=== PATIENT | female | born 1970 | race Asian ===

== ENCOUNTER 2019-03-22 16:46 | Emergency (ER) | payer MEDICAID ==
[~2019-03-22] VITALS: Ht 157.5 cm; Wt 51.6 kg
[2019-03-22] MEDS ORDERED: MECL-76 PO (17:18)
[2019-03-22] MEDS ORDERED: ALBU10PO INH (17:18)
[2019-03-22] MEDS ORDERED: PRED20TA PO (17:18)
[2019-03-22] MEDS ORDERED: MELO15TA24 PO (17:18)
[2019-03-22] MEDS ORDERED: HYDR-3240 PO (17:18)
[2019-03-22] MEDS ORDERED: UMEC62.5 INH (17:18)
--- NOTE | 2019-03-22 17:23 | NUR ---
PT AMBULATORY TO ROOM. STATES SHE HAS HAD RIGHT BREAST/RIB TENDERNESS FOR 2 WEEKS. STATES SHE WAS DISCHARGED FROM A HOSPITAL IN [place] THIS WEEK FOR COPD EXACERBATION AND THIS PAIN SHE IS DESCRIBING NOW. STATES SHE IS DIAGNOSED WITH A RIGHT LUNG MASS AND A MASS IN HER BREAST THAT SHE NEEDS TO FOLLOW UP FOR BUT IS UNABLE TO DO SO AT THIS TIME SHE IS HOMELESS. NADN. VSS. CALL LIGHT IN REACH. PT RESTING ON GURNEY. PT AMBULATED TO BATHROOM FOR UA SAMPLE.
[2019-03-22] MEDS ORDERED: HYDROcodone/APAP 5/325 TABLET PO ONE (18:00)
[2019-03-22] MEDS ORDERED: HYDROcodone/APAP 5/325 TABLET ONE ×2 (18:11→18:15)
[2019-03-22 18:16] VITALS: BP 106/75
--- NOTE | 2019-03-22 18:16 | NUR ---
PT MEDICATED FOR 7-8/10 PAIN ORDERED. SW AT BEDSIDE TO OUMAR PT.
--- NOTE | 2019-03-22 18:58 | NUR ---
Christa warren in ED - 03/22/19 at 1858 by CHARIS BS REPORT OF PT FROM EBONIE COLEEN AND ASSUMING CARE OF PT AT THIS TIME.
--- NOTE | 2019-03-22 18:58 | NUR ---
BS REPORT OF PT FROM EBONIE HORNE AND ASSUMING CARE OF PT AT THIS TIME.
== END 2019-03-22 19:02 | disposition home or self-care (01) ==
LOC: ED 17:47
DX: N63.0 Unspecified lump in unspecified breast (principal); J44.9 Chronic obstructive pulmonary disease, unspecified
CPT/HCPCS: 99283

== ENCOUNTER 2019-03-23 15:38 | Observation (INO) | payer MEDICAID ==
[~2019-03-23] VITALS: Ht 157.5 cm; Wt 56.5 kg
[~2019-03-23 15:38] MED LIST: ALBU10PO INH; HYDR-3240 PO; MECL-76 PO; MELO15TA24 PO; PRED20TA PO; UMEC62.5 INH
[2019-03-23 16:03] LABS: MEAN CORPUSCULAR HEMOGLOBIN 31.1 pg (27.0-34.8); MEAN CORPUSCULAR HGB CONC 32.8 g/dL (32.4-35.8); MEAN CORPUSCULAR VOLUME 94.8 fL (80-100); MEAN PLATELET VOLUME 8.6 fL (7.4-10.4); PLATELET COUNT 270 x10^3/uL (130-400); RED BLOOD COUNT 5.24 x10^6/uL (3.82-5.3); RED CELL DISTRIBUTION WIDTH 14.3 % (9.6-15.2)
[2019-03-23 16:15] LABS: ANION GAP 5 mmol/L (5-15); CALCIUM 8.4 mg/dL (8.5-10.1); CHLORIDE 108 mmol/L (98-107); CREATININE 0.75 mg/dL (0.55-1.02)
[2019-03-23 16:16] LABS: ALBUMIN 3.4 g/dL (3.4-5.0)
[2019-03-23 16:18] LABS: ALANINE AMINOTRANSFERASE 51 U/L (12-78); ALKALINE PHOSPHATASE 83 U/L (45-117); BILIRUBIN,TOTAL 0.3 mg/dL (0.2-1.0); TOTAL PROTEIN 7.1 g/dL (6.4-8.2)
[2019-03-23 16:28] LABS: BASOPHILS # (AUTO) 0.06 x10^3/uL (0-0.1); BASOPHILS % (AUTO) 0 % (0-1); EOSINOPHILS % (AUTO) 0 % (1-7); LYMPHOCYTES # (AUTO) 0.51 x10^3/uL (1-3.4); LYMPHOCYTES % (AUTO) 3 % (22-44); MD SCAN; MONOCYTES # (AUTO) 0.12 x10^3/uL (0.2-0.8); MONOCYTES % (AUTO) 1 % (2-9); NEUTROPHILS # (AUTO) 17.92 x10^3/uL (1.8-6.8); NEUTROPHILS % (AUTO) 96 % (42-75)
--- NOTE | 2019-03-23 16:45 | NUR ---
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
--- NOTE | 2019-03-23 17:00 | NUR ---
pt to ed for n/v since this morning. pt states has vomited 2 times today. per pt and , pt might have eaten some bad chicken strips yeaterday. pt connected to monitors. vss. awaiting edmd assessment.
--- NOTE | 2019-03-23 17:44 | NUR ---
pt resting in room with at bs. vss. no needs expressed. call light within reach. ua collected and sent. awaiting results.
[2019-03-23 17:58] LABS: MICROSCOPIC AUTO
[2019-03-23 17:59] LABS: CULTURE INDICATED? YES
[2019-03-23] MEDS ORDERED: SODIUM CHLORIDE FLUSH 10ML SYR IVF ONE (18:00)
[2019-03-23] MEDS ORDERED: SODIUM CHLORIDE 0.9% 1,000ML IVBOLUS ONE (18:00)
[2019-03-23] MEDS ORDERED: OMNIPAQUE 350 MG/ML, 100ML BOTTLE ONE (18:15)
--- NOTE | 2019-03-23 18:38 | NUR ---
pt resting in room with at bs. vss. no needs expressed. call light within reach. iv established. ua collected via straight cath and sent. awaiting ct and results.
[2019-03-23 18:47] LABS: MICROSCOPIC NOT IND
[2019-03-23 18:51] LABS: CULTURE INDICATED? NO
--- NOTE | 2019-03-23 19:36 | NUR ---
pt resting in room with eyes closed. vss. ivf infusing. all results back at this time. chart up for recheck.
[2019-03-23] MEDS ORDERED: ONDANSETRON 2MG/ML, 2ML IVPush ONE (20:00)
[2019-03-23] MEDS ORDERED: ONDANSETRON 2MG/ML, 2ML ONE (20:05)
--- NOTE | 2019-03-23 20:31 | NUR ---
pt medicated for n/v. report to romina james. pt ready for transport.
[2019-03-23 20:55] VITALS: BP 109/72
[2019-03-23] MEDS ORDERED: ONDANSETRON 2MG/ML, 2ML IVPush PRN (21:00)
[2019-03-23] MEDS ORDERED: morphine SULFATE 10 MG/ML, 1ML IVPush PRN (21:00)
[2019-03-23] MEDS ORDERED: ACETAMINOPHEN 325 MG TABLET PO PRN (21:30)
[2019-03-23] MEDS ORDERED: PIPERACILLIN/TAZO/PMX 3.375GM 50 ML IV SCH (21:30)
[2019-03-23] MEDS ORDERED: HYDROcodone/APAP 5/325 TABLET PO PRN (21:30)
[2019-03-23] MEDS ORDERED: MECLIZINE CHEWABLE 25 MG TAB PO PRN (21:30)
[2019-03-23] MEDS: SODIUM CHLORIDE 0.9% 1,000 ML IV SCH (21:45)
[2019-03-23] MEDS: CEFTRIAXONE PMX 2GM/50ML 50 ML IV SCH (21:52)
[2019-03-23] MEDS: FAMOTIDINE 20 MG/2 ML IVPush SCH (21:53)
[2019-03-24 01:25] VITALS: BP 101/71
[2019-03-24 06:19] LABS: BASOPHILS % (AUTO) 0 % (0-1); EOSINOPHILS % (AUTO) 0 % (1-7); LYMPHOCYTES # (AUTO) 1.05 x10^3/uL (1-3.4); LYMPHOCYTES % (AUTO) 9 % (22-44); MD NO; MEAN CORPUSCULAR HEMOGLOBIN 32.1 pg (27.0-34.8); MEAN CORPUSCULAR HGB CONC 33.3 g/dL (32.4-35.8); MEAN CORPUSCULAR VOLUME 96.2 fL (80-100); MONOCYTES # (AUTO) 0.69 x10^3/uL (0.2-0.8); MONOCYTES % (AUTO) 6 % (2-9); NEUTROPHILS % (AUTO) 85 % (42-75); PLATELET COUNT 226 x10^3/uL (130-400); RED BLOOD COUNT 4.91 x10^6/uL (3.82-5.3); RED CELL DISTRIBUTION WIDTH 14.6 % (9.6-15.2)
[2019-03-24 06:25] LABS: ALBUMIN 2.7 g/dL (3.4-5.0); ANION GAP 2 mmol/L (5-15); CALCIUM 8.1 mg/dL (8.5-10.1); CHLORIDE 112 mmol/L (98-107)
[2019-03-24 06:30] LABS: ALANINE AMINOTRANSFERASE 40 U/L (12-78); ALKALINE PHOSPHATASE 73 U/L (45-117); BILIRUBIN,TOTAL 0.3 mg/dL (0.2-1.0); CREATININE 0.77 mg/dL (0.55-1.02)
[2019-03-24] MEDS: SODIUM CHLORIDE 0.9% 1,000 ML IV SCH ×2 (06:59→18:05)
[2019-03-24] MEDS ORDERED: ALBUTEROL/IPRATROPIUM 2.5MG/0.5MG, 3 ML ONE (06:59)
[2019-03-24 07:43] VITALS: BP 94/60
[2019-03-24] MEDS: FAMOTIDINE 20 MG/2 ML IVPush SCH ×2 (08:27→20:45)
[2019-03-24] MEDS: MELOXICAM 15 MG TABLET PO SCH (08:27)
[2019-03-24] MEDS: AZITHROMYCIN 500 MG TABLET PO SCH (08:27)
[2019-03-24] MEDS: IPRATROPIUM 0.5 MG/2.5 ML INHA NPPB SCH ×3 (09:00→21:00)
[2019-03-24] MEDS: ALBUTEROL SULFATE 2.5 MG/3 ML NPPB SCH (09:00)
[2019-03-24 09:58] VITALS: BP 99/64
[2019-03-24 13:38] VITALS: BP 93/57
[2019-03-24] MEDS ORDERED: ENOXAPARIN 40 MG/0.4 ML SQ SCH (18:00)
[2019-03-24 19:29] VITALS: BP 104/64
[2019-03-24 22:07] LABS: CLOSTRIDIUM DIFFICILE ANTIGEN NEGATIVE; CLOSTRIDIUM DIFFICILE TOXIN NEGATIVE (Negative)
[2019-03-24] MEDS: CEFTRIAXONE PMX 2GM/50ML 50 ML IV SCH (22:40)
[2019-03-25 00:20] VITALS: BP 102/67
[2019-03-25] MEDS: IPRATROPIUM 0.5 MG/2.5 ML INHA NPPB SCH ×3 (03:00→13:14)
[2019-03-25] MEDS: SODIUM CHLORIDE 0.9% 1,000 ML IV SCH ×2 (03:44→14:00)
[2019-03-25 05:53] LABS: ALANINE AMINOTRANSFERASE 30 U/L (12-78); ALBUMIN 2.6 g/dL (3.4-5.0); ANION GAP 3 mmol/L (5-15); CALCIUM 7.7 mg/dL (8.5-10.1); CHLORIDE 114 mmol/L (98-107); CREATININE 0.72 mg/dL (0.55-1.02)
[2019-03-25 05:55] LABS: ALKALINE PHOSPHATASE 68 U/L (45-117); BILIRUBIN,TOTAL 0.1 mg/dL (0.2-1.0); TOTAL PROTEIN 5.8 g/dL (6.4-8.2)
[2019-03-25 06:18] LABS: BASOPHILS # (AUTO) 0.02 x10^3/uL (0-0.1); BASOPHILS % (AUTO) 0 % (0-1); EOSINOPHILS # (AUTO) 0.04 x10^3/uL (0-0.4); EOSINOPHILS % (AUTO) 1 % (1-7); LYMPHOCYTES # (AUTO) 1.93 x10^3/uL (1-3.4); LYMPHOCYTES % (AUTO) 29 % (22-44); MD NO; MEAN CORPUSCULAR HEMOGLOBIN 31.3 pg (27.0-34.8); MEAN CORPUSCULAR HGB CONC 32.8 g/dL (32.4-35.8); MEAN CORPUSCULAR VOLUME 95.6 fL (80-100); MEAN PLATELET VOLUME 8.6 fL (7.4-10.4); MONOCYTES % (AUTO) 15 % (2-9); NEUTROPHILS # (AUTO) 3.76 x10^3/uL (1.8-6.8); NEUTROPHILS % (AUTO) 56 % (42-75); PLATELET COUNT 211 x10^3/uL (130-400); RED BLOOD COUNT 4.72 x10^6/uL (3.82-5.3); RED CELL DISTRIBUTION WIDTH 14.8 % (9.6-15.2)
[2019-03-25] MEDS: ALBUTEROL SULFATE 2.5 MG/3 ML NPPB SCH (07:00)
[2019-03-25 07:29] VITALS: BP 121/76
[2019-03-25] MEDS: AZITHROMYCIN 500 MG TABLET PO SCH (07:37)
[2019-03-25] MEDS: MELOXICAM 15 MG TABLET PO SCH (07:37)
[2019-03-25] MEDS: FAMOTIDINE 20 MG/2 ML IVPush SCH (07:37)
[2019-03-25 12:09] VITALS: BP 109/72
[2019-03-25] MEDS ORDERED: LACT1TAB13 PO (16:14)
[2019-03-25] MEDS ORDERED: AZIT500T5 PO (16:14)
[2019-03-25] MEDS ORDERED: CEFD300C37 PO (16:14)
[2019-03-25] MEDS ORDERED: CEFDINIR 300 MG CAPSULE PO SCH (16:30)
[2019-03-26] MEDS ORDERED: AZITHROMYCIN 500 MG TABLET PO SCH (09:00)
== END 2019-03-25 18:12 | disposition home or self-care (01) ==
LOC: ED 16:56 → EDIP 20:05 → INTOOBSV 20:05 → 3NE 20:55
PROVIDERS: ADMIT Family Medicine; ATTEND Internal Medicine
DX: I95.9 Hypotension, unspecified (principal); R11.2 Nausea with vomiting, unspecified; D72.829 Elevated white blood cell count, unspecified; J43.9 Emphysema, unspecified; R19.7 Diarrhea, unspecified; G89.29 Other chronic pain; J18.9 Pneumonia, unspecified organism; F17.200 Nicotine dependence, unspecified, uncomplicated; E88.09 Other disorders of plasma-protein metabolism, not elsewhere classified; Z79.899 Other long term (current) drug therapy
CPT/HCPCS: 36415; 71260; 74177; 76700; 80053; 81001; 81003; 83605; 83690; 83735; 84100; 85025; 87040; 87086; 87324; 94640; 96361; 96365; 96366; 96375; 96376; 99291; G0378; J0696; J2405; J3490; J7030; J7613; J7644; Q9967